=== PATIENT | male | born 1955 | race African-American/Black ===

== ENCOUNTER 2019-11-07 07:45 | Emergency (ER) | payer MEDICAID ==
[~2019-11-07] VITALS: Ht 167.6 cm; Wt 65.9 kg
--- NOTE | 2019-11-07 08:14 | NUR ---
64 Y/O MALE PRESENTS TO ED WITH C/O FEET PAIN. PT STATES "MY FEET HURT. THEY'VE BEEN HURTING FOR 3 WEEKS. THE PAIN HAS JUST GOTTEN WORSE." DANETTEN. PT RESTING ON GURNEY. PT PLACED ON MONITORS.
[2019-11-07] MEDS ORDERED: ACETAMINOPHEN 500 MG TABLET ONE (08:27)
[2019-11-07] MEDS ORDERED: ACETAMINOPHEN 500 MG TABLET PO ONE (08:30)
[2019-11-07 08:34] VITALS: BP 152/93
--- NOTE | 2019-11-07 08:54 | NUR ---
BEDSIDE REPORT TO JULIO PETERSON.
--- NOTE | 2019-11-07 08:55 | NUR ---
BEDSIDE REPORT RECEIVED FROM JULIO SCHUMACHER. CARE ASSUMED. PT RESTING ON GURNEY, MEDICAL DEVICES IN PLACE, CALL LIGHT WITHIN REACH.
--- NOTE | 2019-11-07 09:21 | NUR ---
Patient/Caregiver given discharge instructions and they have confirmed that they understand the instructions. Patient ambulatory with steady gait.
== END 2019-11-07 09:25 | disposition home or self-care (01) ==
LOC: ED 09:10
DX: M79.671 Pain in right foot (principal); M79.672 Pain in left foot; M19.90 Unspecified osteoarthritis, unspecified site
CPT/HCPCS: 82962; 99283